=== PATIENT | female | born 1940 | race Caucasian/White ===

== ENCOUNTER 2020-03-31 12:36 | Outpatient (REF) | payer OTHER, SELFPAY | END 2020-03-31 12:37 | disposition home or self-care (01) | LOC: HO.HAP 12:36 | PROVIDERS: Visit Provider Internal Medicine Rheumatology | DX: Z46.1 Encounter for fitting and adjustment of hearing aid (principal); H90.3 Sensorineural hearing loss, bilateral | CPT/HCPCS: 92700 ==

== ENCOUNTER 2021-07-21 09:48 | Outpatient (REF) | payer OTHER, SELFPAY ==
--- NOTE | 2021-07-22 09:22 | MHC.AU.AHA ---
Adult Audiological Evaluation Date of Visit: 07/21/21 Reason for Appointment: To determine if there has been a change in her hearing. Patient's last evaluation was at this clinic on 08/22/2019, which revealed moderate to severe sensorineural hearing loss bilaterally. Without her hearing aids, patient has significant difficulty hearing conversational speech. Patient has a history of sinus problems. She reports that her ears often pop, which causes her hearing to slightly fluctuate throughout the day. Ear History: Recent Ear Drainage: None Reported Recent Ear Pain: From her ear molds Recent Ear Infections: None Reported Ear Infections in Childhood: None Reported History of Ear Wax Buildup: Both Ears Previous Ear Surgery: None Reported Ear used on the phone: Right Ear Blocked/Full Sensation in Ear(s): Intermittent Medical History: Medical History: Diabetes, Hypertension, Heart Problems. Patient reports that since recovering from COVID, her memory has been not as good as it was prevoiusly. Hearing Instrument History- Right Ear: Flaking Roll Operator: RES Software Model: RebelMail B 50-P Serial Number: [id number] Battery Size: 13 Repair Warranty: 02/23/2023 Dispensed By: [facility] Date of Fittin01/15/2020 Hearing Instrument History- Left Ear: Flaking Roll Operator: RES Software Model: RebelMail B 50-P Serial Number: [id number] Battery Size: 13 Warranty: 02/23/2023 Dispensed By: [facility] Date of Fittin01/15/2020 Otoscopy: Right Ear: Unremarkable Left Ear: Unremarkable Tympanometry: Tympanometry performed due to: Patient reports clicking/popping sensations in ears Right Ear: Reduced Middle Ear Compliance (Type As) Left Ear: Reduced Middle Ear Compliance (Type As) Hearing Evaluation: Transducer(s) Used: Insert Earphones Method: Conventional Audiometry Stimuli Used: Pure Tones Right Ear: Description of Hearing: Moderate to severe sensorineural hearing loss Left Ear: Description of Hearing: Moderate to severe sensorineural hearing loss Speech Recognition Threshold (SRT): Method Used: Recorded Lists Stimuli Used: Spondee Words Right Ear: 50 dBHL Left Ear: 50 dBHL Word Discrimination: Method: Recorded Lists Word Lists Used: W-22 Right Ear: 80% at 85 dBHL Left Ear: 76% at 80 dBHL Most Comfortable Level (MCL): Right Ear: 85 dBHL Left Ear: 80 dBHL Aided Testing: Aided word discrimination: 96% at 50 dBHL Comparison: Compared to the most recent evaluation: Hearing is stable. Recommendations: Audiological re-evaluation in one year. See Hearing Aid Follow-Up note for more information. Patient should discuss her frequent ear popping and sinus concerns with her PCP. Diagnosis: Primary Diagnosis: H90.3 Bilateral Sensorineural Hearing Loss Signature: Provider: Dylan Camarillo, [facility]
--- NOTE | 2021-07-22 09:23 | MHC.AU.HFU ---
Hearing Instrument Follow-Up- Binaural Date of Visit: 07/21/21 Right Ear: Medical Pathology Teacher: Phonak Model: Bolero B 50-P Serial Number: [id number] Repair Warranty: 02/23/2023 Battery Size: 13 Color: Champagne Dispensed By: [facility] Date of Fittin01/15/2020 Left Ear: Medical Pathology Teacher: Phonak Model: Bolero B 50-P Serial Number: [id number] Repair Warranty: 02/23/2023 Battery Size: 13 Color: Champagne Dispensed By: [facility] Date of Fittin01/15/2020 Follow-Up Summary: Patient was seen for audiological evaluation (see separate report for details). Patient reports that the molds have been hurting her ears. She also feels the hearing aids are too loud and sharp. Hearing aids were inspected and cleaned. Molds were cleaned and re-tubed. Hearing aids are amplifying clearly. Impressions were taken for new molds. We will try a softer material ([id number]) to help with comfort. Lowered overall gain by 4 steps, until patient felt the sound was comfortable, but still clear. Recommendations: Prior authorization for new molds will be requested from [employer]. Upon receiving approval, the impressions will be ordered from [employer]. Diagnosis Code(s): Primary Diagnosis: H90.3 Bilateral Sensorineural Hearing Loss Signature: Provider: Dylan Camarillo, [facility]
== END 2021-07-21 09:49 | disposition home or self-care (01) ==
LOC: HO.SH 09:48
PROVIDERS: Visit Provider Internal Medicine
DX: Z01.118 Encounter for examination of ears and hearing with other abnormal findings (principal); Z46.1 Encounter for fitting and adjustment of hearing aid; H90.3 Sensorineural hearing loss, bilateral
CPT/HCPCS: 92557; 92567; 92593; V5275

== ENCOUNTER 2021-08-19 13:10 | Outpatient (REF) | payer OTHER, SELFPAY ==
--- NOTE | 2021-08-19 14:17 | MHC.AU.HFU ---
Hearing Instrument Follow-Up- Binaural Date of Visit: 08/19/21 Installation Specialist Used: Right Ear: Dog Warden: Phonak Model: Bolero B 50-P Serial Number: [id number] Repair Warranty: 02/23/2023 Battery Size: 13 Dispensed By: [facility] Date of Fittin01/15/2020 Left Ear: Dog Warden: Phonak Model: Bolero B 50-P Serial Number: [id number] Repair Warranty: 02/23/2023 Battery Size: 13 Dispensed By: [facility] Date of Fittin01/15/2020 Follow-Up Summary: Ear molds were attached to the patient's hearing aids. She reports significant improvement in fit and comfort over her old ones. Feedback care process manager was re-run. Recommendations: Hearing instrument follow-up or maintenance as needed. Patient was encouraged to let us know if any discomfort, pain, or fit issues develop. Diagnosis Code(s): Primary Diagnosis: H90.3 Bilateral Sensorineural Hearing Loss Signature: Provider: Dylan Camarillo, [facility]
== END 2021-08-19 13:11 | disposition home or self-care (01) ==
LOC: HO.HAP 13:10
PROVIDERS: Visit Provider Nurse Practitioner Pediatrics
DX: Z46.1 Encounter for fitting and adjustment of hearing aid (principal); H90.3 Sensorineural hearing loss, bilateral
CPT/HCPCS: V5264